=== PATIENT | male | born 1940 | race Caucasian/White ===

== ENCOUNTER 2021-10-01 15:10 | Inpatient (IN) | payer OTHER, BC ==
[2021-10-01] MEDS ORDERED: SODIUM CHLORIDE 2,449 ML IV ONE (15:26)
[2021-10-01] MEDS ORDERED: PIPERACILLIN/TAZOB 4.5 GM 4.5 GM in DEXTROSE 5%-WATER 100 ML IVPB ONE (15:31)
[2021-10-01] MEDS ORDERED: VANCOMYCIN 1 GM in D5W (PRE-DOCKED) 1,000 MG/250 ML IVPB ONE (15:31)
[2021-10-01 15:58] LABS: VENOUS BASE EXCESS -5.1 mmol/L (-2-2); VENOUS O2 SATURATION 40.3 % (70-80); VENOUS PCO2 36.2 mmHg (38-52); VENOUS PH 7.357 (7.310-7.410)
[2021-10-01] MEDS ORDERED: PIPERACILLIN/TAZOB 4.5 GM 4.5 GM/100 ML BAG IVPB ONE (16:00)
[2021-10-01 16:03] LABS: BASO % 0.1 % (0-2.0); LYMPH % 3.7 % (8-40); MCH 30.7 pg (25.7-33.7); MCHC 33.4 g/dl (32.0-35.9); MEAN CELL VOLUME 91.8 fl (80-96); MEAN PLT VOLUME 9.7 fl (7.5-11.1); MONO % 4.8 % (3.8-10.2); NEUT % 91.4 % (42.8-82.8); PLATELET COUNT 133 10^3/uL (134-434); RBC 3.92 M/mm3 (4.00-5.60); RDW 15.2 % (11.9-15.9); WHITE BLOOD COUNT 23.2 K/mm3 (4.0-10.0)
[2021-10-01 16:17] LABS: INR 1.22 (0.83-1.09); PROTHROMBIN TIME (PATIENT) 14.1 SEC (9.7-13.0)
[2021-10-01 16:19] LABS: ACTIVATED PTT 36.7 SECONDS (25.2-36.5); CALCIUM 8.1 mg/dL (8.5-10.1)
[2021-10-01 16:20] LABS: ALBUMIN 2.8 g/dl (3.4-5.0); BLOOD UREA NITROGEN 69.8 mg/dL (7-18)
[2021-10-01 16:24] LABS: CREATININE 4.1 mg/dL (0.55-1.3)
[2021-10-01 16:25] LABS: BILIRUBIN,TOTAL 0.8 mg/dL (0.2-1); TOT PROT 5.6 g/dl (6.4-8.2)
[2021-10-01 16:29] LABS: EPI CELLS 18 /uL (0-25.1); HYALINE CASTS 2 /uL (0-3.1); PH,URINE 7.5 (5.0-8.0); URINE APPEARANCE TURBID; URINE BACTERIA 735 /uL (0-1359); URINE BILIRUBIN NEGATIVE (NEGATIVE); URINE COLOR ORANGE; URINE GLUCOSE (UA) NEGATIVE (NEGATIVE); URINE KETONE NEGATIVE (NEGATIVE); URINE LEUK ESTERASE 3+ (NEGATIVE); URINE NITRITE NEGATIVE (NEGATIVE); URINE PROTEIN 2+ (NEGATIVE); URINE UROBILINOGEN 0.2 mg/dL (0.2-1.0); URINE WBC 1212 /uL (0-25.8)
[2021-10-01 16:36] LABS: MAGNESIUM 2.3 mg/dL (1.8-2.4)
[2021-10-01] MEDS ORDERED: ACETAMINOPHEN 1000 MG/100 ML BAG IVPB ONE (16:37)
[2021-10-01 16:40] LABS: PHOSPHOROUS 2.8 mg/dL (2.5-4.9)
[2021-10-01 16:42] LABS: LACTIC ACID 2.7 mmol/L (0.4-2.0)
[2021-10-01 16:59] LABS: ANISOCYTOSIS 1+; MACROCYTOSIS 0; TOXIC GRANULATION 1+
[2021-10-01] MEDS ORDERED: ACETAMINOPHEN INJECTION 100 ML IVPB ONE ×2 (17:07→21:28)
[2021-10-01] MEDS ORDERED: LORazepam 2 MG/ML SDV VIAL IVPUSH ONE ×2 (17:57→22:19)
[2021-10-01] MEDS ORDERED: SODIUM CHLORIDE 0.9% 500 ML INFUS.BAG IV ONE (18:18)
[2021-10-01 18:28] LABS: URINE RBC 84.9 /uL (0-23.9)
[2021-10-01] MEDS ORDERED: NOREPINEPHRINE BITARTRATE 4 MG/4 ML ML IV ONE (18:43)
[2021-10-01] MEDS: NOREPINEPHRINE D5W PREMIX 16,000 MCG/500 ML BAG IVPB SCH (19:17)
[2021-10-01] MEDS: CHLORHEXIDINE GLUCONATE 4% CLEANSER FOR DECOLONIZATION TP SCH (22:53)
[2021-10-01] MEDS: MUPIROCIN 2% TOPICAL OINTMENT FOR DECOLONIZATION NS SCH (22:53)
[2021-10-02] MEDS ORDERED: PIPERACILLIN/TAZOBACTAM 2.25 GM VIAL IVPB ONE ×3 (00:35→16:51)
[2021-10-02] MEDS ORDERED: DEXTROSE 5%-WATER - 50 ML IVPB ONE ×3 (00:35→16:51)
[2021-10-02] MEDS ORDERED: NOREPINEPHRINE BITARTRATE 4 MG/4 ML ML IV ONE (00:38)
[2021-10-02] MEDS: PIPERACILLIN/TAZOB 2.25 GM 2.25 GM in DEXTROSE 5%-WATER - 50 ML IVPB SCH ×3 (00:47→16:59)
[2021-10-02 07:29] LABS: CHLORIDE 117 mmol/L (98-107); SODIUM 148 mmol/L (136-145)
[2021-10-02 07:35] LABS: ALBUMIN 2.3 g/dl (3.4-5.0); ANION GAP 11 MMOL/L (8-16); BLOOD UREA NITROGEN 70.4 mg/dL (7-18); CO2 21 mmol/L (21-32); GLUCOSE,RANDOM 66 mg/dL (74-106); MAGNESIUM 2.1 mg/dL (1.8-2.4)
[2021-10-02 07:38] LABS: CREATININE 3.4 mg/dL (0.55-1.3); PHOSPHOROUS 4.3 mg/dL (2.5-4.9); SGOT/AST 125 U/L (15-37); SGPT/ALT 94 U/L (13-61)
[2021-10-02 07:39] LABS: TOT PROT 4.7 g/dl (6.4-8.2)
[2021-10-02 07:40] LABS: ALK PHOS 66 U/L (45-117)
[2021-10-02 07:47] LABS: HEMOGLOBIN 10.8 GM/dL (11.7-16.9); MCHC 33.6 g/dl (32.0-35.9); MEAN CELL VOLUME 92.2 fl (80-96); MEAN PLT VOLUME 9.7 fl (7.5-11.1); PLATELET COUNT 115 10^3/uL (134-434); RBC 3.47 M/mm3 (4.00-5.60); RDW 15.1 % (11.9-15.9); WHITE BLOOD COUNT 16.6 K/mm3 (4.0-10.0)
[2021-10-02 08:12] LABS: CALCIUM 6.7 mg/dL (8.5-10.1)
[2021-10-02] MEDS: DUTASTERIDE 0.5 MG CAP (FP) PO SCH (09:56)
[2021-10-02] MEDS: SERTRALINE HCL 25 MG TABLET (FP) PO SCH (09:56)
[2021-10-02] MEDS: ENOXAPARIN NA (PORCINE) 30 MG/0.3 ML DISP.SYRIN SQ SCH (09:57)
[2021-10-02] MEDS: buPROPion HCL 75 MG TABLET PO SCH (09:57)
[2021-10-02] MEDS: BACLOFEN 10 MG TABLET (FP) PO SCH (09:57)
[2021-10-02 10:02] LABS: ANISOCYTOSIS 1+; MACROCYTOSIS 1+; OVALOCYTE 1+
[2021-10-02] MEDS: MUPIROCIN 2% TOPICAL OINTMENT FOR DECOLONIZATION NS SCH ×2 (10:06→21:07)
[2021-10-02] MEDS ORDERED: LACTATED RINGERS SOLUTION 1,000 ML/1,000 ML INFUS.BAG IV SCH (11:30)
[2021-10-02 13:07] LABS: SARS-CoV-2 NAA Not Detected (Not Detected)
[2021-10-02] MEDS ORDERED: PNEUMOC 13-VAL CONJ-DIP CRM/PF 0.5 ML DISP.SYRIN IM ONE (15:00)
[2021-10-02] MEDS ORDERED: VANCOMYCIN/WATER 1,250 MG/250 ML BAG IVPB SCH ×2 (15:00→17:00)
[2021-10-02] MEDS: NOREPINEPHRINE D5W PREMIX 16,000 MCG/500 ML BAG IVPB SCH ×2 (17:16→18:30)
[2021-10-02] MEDS: CHLORHEXIDINE GLUCONATE 4% CLEANSER FOR DECOLONIZATION TP SCH (21:07)
[2021-10-03] MEDS ORDERED: DEXTROSE 5%-WATER - 50 ML IVPB ONE ×3 (01:10→17:56)
[2021-10-03] MEDS: PIPERACILLIN/TAZOB 2.25 GM 2.25 GM in DEXTROSE 5%-WATER - 50 ML IVPB SCH ×3 (01:10→17:58)
[2021-10-03] MEDS ORDERED: PIPERACILLIN/TAZOBACTAM 2.25 GM VIAL IVPB ONE ×3 (01:10→17:56)
[2021-10-03 08:04] LABS: CHLORIDE 121 mmol/L (98-107); HEMATOCRIT 31.2 % (35.4-49); HEMOGLOBIN 10.2 GM/dL (11.7-16.9); MCH 30.4 pg (25.7-33.7); MCHC 32.8 g/dl (32.0-35.9); MEAN CELL VOLUME 92.6 fl (80-96); MEAN PLT VOLUME 10.2 fl (7.5-11.1); PLATELET COUNT 95 10^3/uL (134-434); RBC 3.37 M/mm3 (4.00-5.60); RDW 15.5 % (11.9-15.9); SODIUM 150 mmol/L (136-145); WHITE BLOOD COUNT 18.2 K/mm3 (4.0-10.0)
[2021-10-03 08:08] LABS: ANION GAP 7 MMOL/L (8-16); BLOOD UREA NITROGEN 70.8 mg/dL (7-18); CO2 22 mmol/L (21-32); GLUCOSE,RANDOM 86 mg/dL (74-106); MAGNESIUM 2.3 mg/dL (1.8-2.4)
[2021-10-03 08:12] LABS: CREATININE 2.8 mg/dL (0.55-1.3); PHOSPHOROUS 3.7 mg/dL (2.5-4.9)
[2021-10-03 08:15] LABS: CALCIUM 6.8 mg/dL (8.5-10.1)
[2021-10-03] MEDS: MUPIROCIN 2% TOPICAL OINTMENT FOR DECOLONIZATION NS SCH ×2 (10:13→22:20)
[2021-10-03] MEDS: DUTASTERIDE 0.5 MG CAP (FP) PO SCH (10:26)
[2021-10-03] MEDS: BACLOFEN 10 MG TABLET (FP) PO SCH (10:27)
[2021-10-03] MEDS: ENOXAPARIN NA (PORCINE) 30 MG/0.3 ML DISP.SYRIN SQ SCH (10:27)
[2021-10-03] MEDS: buPROPion HCL 75 MG TABLET PO SCH (10:27)
[2021-10-03] MEDS: SERTRALINE HCL 25 MG TABLET (FP) PO SCH (10:29)
[2021-10-03] MEDS: SODIUM CHLORIDE 0.45% 1,000 ML IV SCH (13:31)
[2021-10-03] MEDS: NOREPINEPHRINE D5W PREMIX 16,000 MCG/500 ML BAG IVPB SCH (19:50)
[2021-10-03] MEDS: CHLORHEXIDINE GLUCONATE 4% CLEANSER FOR DECOLONIZATION TP SCH (22:20)
[2021-10-04] MEDS ORDERED: PIPERACILLIN/TAZOBACTAM 2.25 GM VIAL IVPB ONE ×3 (01:18→18:52)
[2021-10-04] MEDS ORDERED: DEXTROSE 5%-WATER - 50 ML IVPB ONE ×3 (01:18→18:52)
[2021-10-04] MEDS: PIPERACILLIN/TAZOB 2.25 GM 2.25 GM in DEXTROSE 5%-WATER - 50 ML IVPB SCH ×3 (01:21→18:50)
[2021-10-04] MEDS: SODIUM CHLORIDE 0.45% 1,000 ML IV SCH (05:45)
[2021-10-04] MEDS: ENOXAPARIN NA (PORCINE) 30 MG/0.3 ML DISP.SYRIN SQ SCH (09:56)
[2021-10-04] MEDS: BACLOFEN 10 MG TABLET (FP) PO SCH (09:56)
[2021-10-04] MEDS: SERTRALINE HCL 25 MG TABLET (FP) PO SCH (09:56)
[2021-10-04] MEDS: DUTASTERIDE 0.5 MG CAP (FP) PO SCH (09:56)
[2021-10-04] MEDS: MUPIROCIN 2% TOPICAL OINTMENT FOR DECOLONIZATION NS SCH ×2 (09:57→22:26)
[2021-10-04] MEDS: buPROPion HCL 75 MG TABLET PO SCH (09:57)
[2021-10-04] MEDS ORDERED: DEXTROSE 5%-WATER - 1,000 ML IV SCH (10:30)
[2021-10-04] MEDS ORDERED: ACETAMINOPHEN 1000 MG/100 ML BAG IVPB PRN (12:41)
[2021-10-04] MEDS: AMINO ACIDS 4.25%/D5W 1,000 ML IV SCH (18:50)
[2021-10-04] MEDS: CHLORHEXIDINE GLUCONATE 4% CLEANSER FOR DECOLONIZATION TP SCH (22:26)
[2021-10-05] MEDS ORDERED: PIPERACILLIN/TAZOBACTAM 2.25 GM VIAL IVPB ONE ×3 (02:00→17:08)
[2021-10-05] MEDS ORDERED: DEXTROSE 5%-WATER - 50 ML IVPB ONE ×3 (02:00→17:09)
[2021-10-05] MEDS: PIPERACILLIN/TAZOB 2.25 GM 2.25 GM in DEXTROSE 5%-WATER - 50 ML IVPB SCH ×3 (02:08→17:37)
[2021-10-05] MEDS: AMINO ACIDS 4.25%/D5W 1,000 ML IV SCH ×2 (05:08→17:37)
[2021-10-05 07:25] LABS: HEMATOCRIT 38.1 % (35.4-49); HEMOGLOBIN 12.3 GM/dL (11.7-16.9); MCH 30.1 pg (25.7-33.7); MCHC 32.2 g/dl (32.0-35.9); MEAN CELL VOLUME 93.3 fl (80-96); MEAN PLT VOLUME 9.9 fl (7.5-11.1); PLATELET COUNT 73 10^3/uL (134-434); RBC 4.08 M/mm3 (4.00-5.60); RDW 15.6 % (11.9-15.9); WHITE BLOOD COUNT 8.2 K/mm3 (4.0-10.0)
[2021-10-05 07:45] LABS: CALCIUM 7.8 mg/dL (8.5-10.1)
[2021-10-05 07:46] LABS: ALBUMIN 2.2 g/dl (3.4-5.0); BLOOD UREA NITROGEN 56.9 mg/dL (7-18)
[2021-10-05 07:49] LABS: CREATININE 1.8 mg/dL (0.55-1.3)
[2021-10-05 07:51] LABS: BILIRUBIN,TOTAL 0.9 mg/dL (0.2-1)
[2021-10-05] MEDS: DUTASTERIDE 0.5 MG CAP (FP) PO SCH (09:48)
[2021-10-05] MEDS: MUPIROCIN 2% TOPICAL OINTMENT FOR DECOLONIZATION NS SCH ×2 (09:48→22:12)
[2021-10-05] MEDS: BACLOFEN 10 MG TABLET (FP) PO SCH (09:49)
[2021-10-05] MEDS: buPROPion HCL 75 MG TABLET PO SCH (09:49)
[2021-10-05] MEDS: ENOXAPARIN NA (PORCINE) 30 MG/0.3 ML DISP.SYRIN SQ SCH (09:49)
[2021-10-05] MEDS: SERTRALINE HCL 25 MG TABLET (FP) PO SCH (09:50)
[2021-10-05 10:13] LABS: ANISOCYTOSIS 0; MACROCYTOSIS 0; PLATELET ESTIMATE DECREASED
[2021-10-05 13:03] VITALS: BMI 20.9
[2021-10-05] MEDS: hydrALAZINE HCL 20 MG/ML VIAL IVPUSH PRN (19:12)
[2021-10-05] MEDS: hydrALAZINE HCL 10 MG TABLET PO SCH (22:12)
[2021-10-05] MEDS: CHLORHEXIDINE GLUCONATE 4% CLEANSER FOR DECOLONIZATION TP SCH (22:12)
[2021-10-05] MEDS ORDERED: LORazepam 2 MG/ML SDV VIAL IVPUSH ONE (22:19)
[2021-10-06] MEDS ORDERED: DEXTROSE 5%-WATER - 50 ML IVPB ONE ×3 (01:10→17:15)
[2021-10-06] MEDS ORDERED: PIPERACILLIN/TAZOBACTAM 2.25 GM VIAL IVPB ONE ×3 (01:10→17:15)
[2021-10-06] MEDS: PIPERACILLIN/TAZOB 2.25 GM 2.25 GM in DEXTROSE 5%-WATER - 50 ML IVPB SCH ×3 (01:21→17:45)
[2021-10-06] MEDS: hydrALAZINE HCL 20 MG/ML VIAL IVPUSH PRN (03:23)
[2021-10-06] MEDS: AMINO ACIDS 4.25%/D5W 1,000 ML IV SCH ×2 (05:52→16:56)
[2021-10-06 07:31] LABS: HEMATOCRIT 34.5 % (35.4-49); HEMOGLOBIN 11.7 GM/dL (11.7-16.9); MCH 31.4 pg (25.7-33.7); MCHC 33.8 g/dl (32.0-35.9); MEAN CELL VOLUME 92.9 fl (80-96); MEAN PLT VOLUME 9.8 fl (7.5-11.1); PLATELET COUNT 97 10^3/uL (134-434); RBC 3.71 M/mm3 (4.00-5.60); RDW 15.4 % (11.9-15.9)
[2021-10-06 07:56] LABS: CALCIUM 7.6 mg/dL (8.5-10.1)
[2021-10-06 07:57] LABS: BLOOD UREA NITROGEN 49.4 mg/dL (7-18); MAGNESIUM 2.3 mg/dL (1.8-2.4)
[2021-10-06 08:00] LABS: CREATININE 1.4 mg/dL (0.55-1.3); PHOSPHOROUS 1.8 mg/dL (2.5-4.9)
[2021-10-06 09:50] LABS: ANISOCYTOSIS 0; HELMET CELLS 0; HOWELL-JOLLY BODIES 0; MACROCYTOSIS 0; OVALOCYTE 0; ROULEAU 0; SICKELED CELLS 0; TARGET CELLS 0; TEAR DROP CELLS 0; TOXIC GRANULATION 0
[2021-10-06] MEDS: ENOXAPARIN NA (PORCINE) 30 MG/0.3 ML DISP.SYRIN SQ SCH (10:50)
[2021-10-06] MEDS: hydrALAZINE HCL 10 MG TABLET PO SCH ×2 (10:51→22:00)
[2021-10-06] MEDS: buPROPion HCL 75 MG TABLET PO SCH (10:51)
[2021-10-06] MEDS: BACLOFEN 10 MG TABLET (FP) PO SCH (10:52)
[2021-10-06] MEDS: SERTRALINE HCL 25 MG TABLET (FP) PO SCH (10:52)
[2021-10-06] MEDS: DUTASTERIDE 0.5 MG CAP (FP) PO SCH (10:52)
[2021-10-06] MEDS: MUPIROCIN 2% TOPICAL OINTMENT FOR DECOLONIZATION NS SCH (10:53)
[2021-10-06] MEDS ORDERED: FUROSEMIDE 40 MG/4 ML INJECTABLE VIAL IVPUSH ONE (12:54)
[2021-10-06] MEDS ORDERED: hydrALAZINE HCL 20 MG/ML VIAL IVPUSH PRN (16:21)
[2021-10-06] MEDS ORDERED: CHLORHEXIDINE GLUCONATE 4% CLEANSER FOR DECOLONIZATION TP SCH (22:00)
[2021-10-06] MEDS ORDERED: MUPIROCIN 2% TOPICAL OINTMENT FOR DECOLONIZATION NS SCH (22:00)
[2021-10-07] MEDS ORDERED: DEXTROSE 5%-WATER - 50 ML IVPB ONE ×3 (00:42→16:43)
[2021-10-07] MEDS ORDERED: PIPERACILLIN/TAZOBACTAM 2.25 GM VIAL IVPB ONE ×3 (00:42→16:43)
[2021-10-07] MEDS: PIPERACILLIN/TAZOB 2.25 GM 2.25 GM in DEXTROSE 5%-WATER - 50 ML IVPB SCH ×3 (01:07→17:58)
[2021-10-07] MEDS: AMINO ACIDS 4.25%/D5W 1,000 ML IV SCH (07:27)
[2021-10-07] MEDS ORDERED: diazePAM CARPU-JECT 10 MG/2 ML DISP.SYRIN IVPUSH ONE (08:45)
[2021-10-07] MEDS ORDERED: FUROSEMIDE 40 MG/4 ML INJECTABLE VIAL IVPUSH ONE (08:45)
[2021-10-07] MEDS: ENOXAPARIN NA (PORCINE) 30 MG/0.3 ML DISP.SYRIN SQ SCH (09:24)
[2021-10-07] MEDS: SERTRALINE HCL 25 MG TABLET (FP) PO SCH (09:25)
[2021-10-07] MEDS: BACLOFEN 10 MG TABLET (FP) PO SCH (09:25)
[2021-10-07] MEDS: buPROPion HCL 75 MG TABLET PO SCH (09:25)
[2021-10-07] MEDS: DUTASTERIDE 0.5 MG CAP (FP) PO SCH (09:25)
[2021-10-07] MEDS: hydrALAZINE HCL 10 MG TABLET PO SCH ×2 (09:25→21:32)
[2021-10-07 10:40] LABS: HEMOGLOBIN 10.3 GM/dL (11.7-16.9); MCH 30.4 pg (25.7-33.7); MCHC 33.2 g/dl (32.0-35.9); MEAN CELL VOLUME 91.6 fl (80-96); MEAN PLT VOLUME 9.7 fl (7.5-11.1); PLATELET COUNT 142 10^3/uL (134-434); RBC 3.39 M/mm3 (4.00-5.60); RDW 14.6 % (11.9-15.9); WHITE BLOOD COUNT 9.9 K/mm3 (4.0-10.0)
[2021-10-07 11:08] LABS: CHLORIDE 119 mmol/L (98-107); SODIUM 150 mmol/L (136-145)
[2021-10-07 11:16] LABS: ALBUMIN 2.2 g/dl (3.4-5.0); BLOOD UREA NITROGEN 42.1 mg/dL (7-18); CO2 25 mmol/L (21-32); GLUCOSE,RANDOM 116 mg/dL (74-106)
[2021-10-07 11:19] LABS: CREATININE 1.3 mg/dL (0.55-1.3); SGOT/AST 27 U/L (15-37); SGPT/ALT 23 U/L (13-61)
[2021-10-07 11:21] LABS: TOT PROT 5.2 g/dl (6.4-8.2)
[2021-10-07 11:22] LABS: ALK PHOS 95 U/L (45-117)
[2021-10-07 11:27] LABS: ANION GAP 6 MMOL/L (8-16)
[2021-10-07 12:04] LABS: ANISOCYTOSIS 1+; MACROCYTOSIS 1+
[2021-10-07] MEDS: KCL 10 MEQ IVPB 10 MEQ/100 ML INFUS.BAG IVPB SCH ×4 (12:17→18:32)
[2021-10-07] MEDS: POTASSIUM CHLORIDE 20 MEQ in AMINO ACIDS 4.25%/D5W 1,000 ML IV SCH ×2 (19:41→21:34)
[2021-10-07] MEDS: METOPROLOL TARTRATE 5 MG/5 ML VIAL IVPB PRN (21:59)
[2021-10-08] MEDS ORDERED: PIPERACILLIN/TAZOBACTAM 2.25 GM VIAL IVPB ONE ×3 (01:21→16:17)
[2021-10-08] MEDS ORDERED: DEXTROSE 5%-WATER - 50 ML IVPB ONE ×3 (01:22→16:17)
[2021-10-08] MEDS: PIPERACILLIN/TAZOB 2.25 GM 2.25 GM in DEXTROSE 5%-WATER - 50 ML IVPB SCH ×2 (01:28→10:08)
[2021-10-08] MEDS: METOPROLOL TARTRATE 5 MG/5 ML VIAL IVPB PRN ×3 (02:30→10:31)
[2021-10-08] MEDS: POTASSIUM CHLORIDE 20 MEQ in AMINO ACIDS 4.25%/D5W 1,000 ML IV SCH ×3 (03:00→15:05)
[2021-10-08 09:14] LABS: HEMATOCRIT 30.5 % (35.4-49); HEMOGLOBIN 10.5 GM/dL (11.7-16.9); MCH 31.2 pg (25.7-33.7); MCHC 34.6 g/dl (32.0-35.9); MEAN CELL VOLUME 90.3 fl (80-96); MEAN PLT VOLUME 9.2 fl (7.5-11.1); PLATELET COUNT 190 10^3/uL (134-434); RBC 3.37 M/mm3 (4.00-5.60); RDW 14.6 % (11.9-15.9); WHITE BLOOD COUNT 9.2 K/mm3 (4.0-10.0)
[2021-10-08 09:47] LABS: CALCIUM 7.8 mg/dL (8.5-10.1)
[2021-10-08 09:48] LABS: ALBUMIN 2.2 g/dl (3.4-5.0); BLOOD UREA NITROGEN 41.8 mg/dL (7-18)
[2021-10-08 09:51] LABS: CREATININE 1.3 mg/dL (0.55-1.3); PHOSPHOROUS 1.9 mg/dL (2.5-4.9)
[2021-10-08 09:52] LABS: BILIRUBIN,TOTAL 2.7 mg/dL (0.2-1); TOT PROT 5.4 g/dl (6.4-8.2)
[2021-10-08] MEDS ORDERED: KCL 10 MEQ IVPB 10 MEQ/100 ML INFUS.BAG IVPB SCH (10:00)
[2021-10-08] MEDS: DUTASTERIDE 0.5 MG CAP (FP) PO SCH (10:09)
[2021-10-08] MEDS: BACLOFEN 10 MG TABLET (FP) PO SCH (10:09)
[2021-10-08] MEDS: hydrALAZINE HCL 10 MG TABLET PO SCH (10:09)
[2021-10-08] MEDS: buPROPion HCL 75 MG TABLET PO SCH (10:11)
[2021-10-08] MEDS: SERTRALINE HCL 25 MG TABLET (FP) PO SCH (10:11)
[2021-10-08] MEDS: ENOXAPARIN NA (PORCINE) 30 MG/0.3 ML DISP.SYRIN SQ SCH (10:30)
[2021-10-08] MEDS: HALOPERIDOL LACTATE 5 MG/ML IM PRN (13:15)
[2021-10-08] MEDS ORDERED: POTASSIUM CHLORIDE ORAL LIQUID 20 MEQ/15 ML PO ONE (16:37)
[2021-10-08] MEDS: PIPERACILLIN/TAZOB 3.375 GM 3.375 GM in DEXTROSE 5%-WATER - 50 ML IVPB SCH (17:24)
[2021-10-08] MEDS: hydrALAZINE HCL 10 MG TABLET NGT SCH (22:47)
[2021-10-09] MEDS ORDERED: DEXTROSE 5%-WATER - 50 ML IVPB ONE ×3 (00:45→15:19)
[2021-10-09] MEDS ORDERED: PIPERACILLIN/TAZOBACTAM 3.375 GM VIAL IVPB ONE ×3 (00:45→15:19)
[2021-10-09] MEDS: PIPERACILLIN/TAZOB 3.375 GM 3.375 GM in DEXTROSE 5%-WATER - 50 ML IVPB SCH ×3 (01:22→17:10)
[2021-10-09 09:08] LABS: HEMATOCRIT 31.3 % (35.4-49); HEMOGLOBIN 10.5 GM/dL (11.7-16.9); MCH 30.8 pg (25.7-33.7); MCHC 33.6 g/dl (32.0-35.9); MEAN CELL VOLUME 91.7 fl (80-96); MEAN PLT VOLUME 9.3 fl (7.5-11.1); PLATELET COUNT 262 10^3/uL (134-434); RBC 3.41 M/mm3 (4.00-5.60); RDW 14.6 % (11.9-15.9); WHITE BLOOD COUNT 7.7 K/mm3 (4.0-10.0)
[2021-10-09 09:34] LABS: BLOOD UREA NITROGEN 41.7 mg/dL (7-18)
[2021-10-09 09:35] LABS: CALCIUM 8.4 mg/dL (8.5-10.1); MAGNESIUM 2.2 mg/dL (1.8-2.4)
[2021-10-09 09:38] LABS: CREATININE 1.3 mg/dL (0.55-1.3)
[2021-10-09 09:40] LABS: PHOSPHOROUS 3.2 mg/dL (2.5-4.9)
[2021-10-09] MEDS: DUTASTERIDE 0.5 MG CAP (FP) PO SCH (09:58)
[2021-10-09] MEDS: SERTRALINE HCL 25 MG TABLET (FP) PO SCH (09:58)
[2021-10-09] MEDS: hydrALAZINE HCL 10 MG TABLET NGT SCH ×2 (09:58→21:49)
[2021-10-09] MEDS: buPROPion HCL 75 MG TABLET NGT SCH (09:59)
[2021-10-09] MEDS: ENOXAPARIN NA (PORCINE) 30 MG/0.3 ML DISP.SYRIN SQ SCH (09:59)
[2021-10-09] MEDS: COLLAGENASE CLOSTRIDIUM HIST. 30 GRAMS TUBE TP SCH (10:00)
[2021-10-09] MEDS: HALOPERIDOL LACTATE 5 MG/ML IM PRN (10:28)
[2021-10-09] MEDS: METOPROLOL TARTRATE 5 MG/5 ML VIAL IVPB PRN ×2 (10:28→14:42)
[2021-10-10] MEDS ORDERED: PIPERACILLIN/TAZOBACTAM 3.375 GM VIAL IVPB ONE ×3 (01:25→17:10)
[2021-10-10] MEDS ORDERED: DEXTROSE 5%-WATER - 50 ML IVPB ONE ×3 (01:25→17:10)
[2021-10-10] MEDS: PIPERACILLIN/TAZOB 3.375 GM 3.375 GM in DEXTROSE 5%-WATER - 50 ML IVPB SCH ×3 (01:25→17:12)
[2021-10-10 09:13] LABS: BASO % 0.5 % (0-2.0); EOS % 1.3 % (0-4.5); HEMATOCRIT 32.3 % (35.4-49); HEMOGLOBIN 10.8 GM/dL (11.7-16.9); LYMPH % 10.4 % (8-40); MCH 30.7 pg (25.7-33.7); MCHC 33.5 g/dl (32.0-35.9); MEAN CELL VOLUME 91.8 fl (80-96); MEAN PLT VOLUME 9.4 fl (7.5-11.1); NEUT % 75.8 % (42.8-82.8); PLATELET COUNT 318 10^3/uL (134-434); RBC 3.52 M/mm3 (4.00-5.60); RDW 14.9 % (11.9-15.9); WHITE BLOOD COUNT 8.3 K/mm3 (4.0-10.0)
[2021-10-10 09:31] LABS: BLOOD UREA NITROGEN 45.3 mg/dL (7-18); CALCIUM 8.4 mg/dL (8.5-10.1)
[2021-10-10 09:35] LABS: CREATININE 1.3 mg/dL (0.55-1.3)
[2021-10-10] MEDS: buPROPion HCL 75 MG TABLET NGT SCH (10:16)
[2021-10-10] MEDS: hydrALAZINE HCL 10 MG TABLET NGT SCH ×2 (10:16→21:33)
[2021-10-10] MEDS: DUTASTERIDE 0.5 MG CAP (FP) PO SCH (10:16)
[2021-10-10] MEDS: SERTRALINE HCL 25 MG TABLET (FP) PO SCH (10:17)
[2021-10-10] MEDS: ENOXAPARIN NA (PORCINE) 30 MG/0.3 ML DISP.SYRIN SQ SCH (10:17)
[2021-10-10] MEDS: METOPROLOL TARTRATE 5 MG/5 ML VIAL IVPB PRN ×2 (12:14→16:52)
[2021-10-10] MEDS: COLLAGENASE CLOSTRIDIUM HIST. 30 GRAMS TUBE TP SCH (15:24)
[2021-10-10] MEDS ORDERED: LORazepam 2 MG/ML SDV VIAL IVPUSH ONE (22:10)
[2021-10-11] MEDS ORDERED: PIPERACILLIN/TAZOBACTAM 3.375 GM VIAL IVPB ONE ×3 (00:45→17:02)
[2021-10-11] MEDS ORDERED: DEXTROSE 5%-WATER - 50 ML IVPB ONE ×3 (00:45→17:02)
[2021-10-11] MEDS: PIPERACILLIN/TAZOB 3.375 GM 3.375 GM in DEXTROSE 5%-WATER - 50 ML IVPB SCH ×3 (00:59→17:08)
[2021-10-11] MEDS: hydrALAZINE HCL 10 MG TABLET NGT SCH ×5 (01:23→21:32)
[2021-10-11] MEDS: METOPROLOL TARTRATE 5 MG/5 ML VIAL IVPB PRN ×2 (02:15→09:30)
[2021-10-11 09:33] LABS: BLOOD UREA NITROGEN 40.8 mg/dL (7-18); CALCIUM 8.2 mg/dL (8.5-10.1)
[2021-10-11 09:34] LABS: ALBUMIN 2.2 g/dl (3.4-5.0)
[2021-10-11] MEDS: ENOXAPARIN NA (PORCINE) 30 MG/0.3 ML DISP.SYRIN SQ SCH (09:34)
[2021-10-11] MEDS: DUTASTERIDE 0.5 MG CAP (FP) PO SCH (09:34)
[2021-10-11] MEDS: SERTRALINE HCL 25 MG TABLET (FP) PO SCH (09:34)
[2021-10-11 09:37] LABS: CREATININE 1.2 mg/dL (0.55-1.3)
[2021-10-11 09:38] LABS: BILIRUBIN,TOTAL 0.8 mg/dL (0.2-1); TOT PROT 5.7 g/dl (6.4-8.2)
[2021-10-11] MEDS: COLLAGENASE CLOSTRIDIUM HIST. 30 GRAMS TUBE TP SCH (10:27)
[2021-10-11] MEDS: buPROPion HCL 75 MG TABLET NGT SCH (10:27)
[2021-10-11] MEDS: LISINOPRIL 10 MG TABLET NGT SCH (10:27)
[2021-10-11] MEDS: amLODIPine BESYLATE 5 MG TABLET (FP) PO SCH (14:43)
[2021-10-12] MEDS ORDERED: PIPERACILLIN/TAZOBACTAM 3.375 GM VIAL IVPB ONE ×2 (00:44→10:52)
[2021-10-12] MEDS ORDERED: DEXTROSE 5%-WATER - 50 ML IVPB ONE ×2 (00:44→10:52)
[2021-10-12] MEDS: PIPERACILLIN/TAZOB 3.375 GM 3.375 GM in DEXTROSE 5%-WATER - 50 ML IVPB SCH ×2 (01:00→11:08)
[2021-10-12] MEDS: METOPROLOL TARTRATE 5 MG/5 ML VIAL IVPB PRN (02:15)
[2021-10-12] MEDS: hydrALAZINE HCL 10 MG TABLET NGT SCH (05:55)
[2021-10-12] MEDS: LISINOPRIL 10 MG TABLET NGT SCH (09:40)
[2021-10-12] MEDS: DUTASTERIDE 0.5 MG CAP (FP) PO SCH (09:40)
[2021-10-12] MEDS: COLLAGENASE CLOSTRIDIUM HIST. 30 GRAMS TUBE TP SCH (09:40)
[2021-10-12] MEDS: SERTRALINE HCL 25 MG TABLET (FP) PO SCH (09:40)
[2021-10-12] MEDS: METOPROLOL TARTRATE 25 MG TABLET (FP) NGT SCH ×2 (09:40→21:15)
[2021-10-12] MEDS: amLODIPine BESYLATE 5 MG TABLET (FP) PO SCH (09:40)
[2021-10-12] MEDS: ENOXAPARIN NA (PORCINE) 30 MG/0.3 ML DISP.SYRIN SQ SCH (09:40)
[2021-10-12 09:51] LABS: HEMATOCRIT 29.9 % (35.4-49); HEMOGLOBIN 9.8 GM/dL (11.7-16.9); MCH 30.3 pg (25.7-33.7); MCHC 32.9 g/dl (32.0-35.9); MEAN PLT VOLUME 9.8 fl (7.5-11.1); PLATELET COUNT 340 10^3/uL (134-434); RBC 3.24 M/mm3 (4.00-5.60); RDW 14.5 % (11.9-15.9); WHITE BLOOD COUNT 9.9 K/mm3 (4.0-10.0)
[2021-10-12] MEDS: HALOPERIDOL LACTATE 5 MG/ML IM PRN (10:01)
[2021-10-12 10:11] LABS: BLOOD UREA NITROGEN 42.1 mg/dL (7-18); CALCIUM 8.1 mg/dL (8.5-10.1); MAGNESIUM 2.7 mg/dL (1.8-2.4)
[2021-10-12 10:15] LABS: CREATININE 1.1 mg/dL (0.55-1.3)
[2021-10-12] MEDS: buPROPion HCL 75 MG TABLET NGT SCH (11:18)
[2021-10-13] MEDS: LISINOPRIL 10 MG TABLET NGT SCH (10:31)
[2021-10-13] MEDS: buPROPion HCL 75 MG TABLET NGT SCH (10:31)
[2021-10-13] MEDS: amLODIPine BESYLATE 5 MG TABLET (FP) PO SCH (10:31)
[2021-10-13] MEDS: SERTRALINE HCL 25 MG TABLET (FP) PO SCH (10:31)
[2021-10-13] MEDS: ENOXAPARIN NA (PORCINE) 30 MG/0.3 ML DISP.SYRIN SQ SCH (10:31)
[2021-10-13] MEDS: COLLAGENASE CLOSTRIDIUM HIST. 30 GRAMS TUBE TP SCH (10:33)
[2021-10-13] MEDS: ACETAMINOPHEN 650 MG/20.3 ML ORAL SOLUTION (CUPS) NGT PRN (10:34)
[2021-10-13] MEDS: DUTASTERIDE 0.5 MG CAP (FP) PO SCH (10:44)
[2021-10-13] MEDS: METOPROLOL TARTRATE 25 MG TABLET (FP) NGT SCH (12:21)
[2021-10-13] MEDS: ALBUTEROL SO4 2.5/IPRATROPIUM 0.5 INH SOL 3 ML VIAL.NEB. NEB SCH (20:00)
[2021-10-13] MEDS: HALOPERIDOL LACTATE 5 MG/ML IM PRN (23:52)
[2021-10-14] MEDS: ALBUTEROL SO4 2.5/IPRATROPIUM 0.5 INH SOL 3 ML VIAL.NEB. NEB SCH ×3 (07:36→20:20)
[2021-10-14 09:35] LABS: HEMATOCRIT 29.4 % (35.4-49); HEMOGLOBIN 9.9 GM/dL (11.7-16.9); MCH 30.6 pg (25.7-33.7); MCHC 33.7 g/dl (32.0-35.9); MEAN CELL VOLUME 90.7 fl (80-96); MEAN PLT VOLUME 9.9 fl (7.5-11.1); PLATELET COUNT 379 10^3/uL (134-434); RBC 3.24 M/mm3 (4.00-5.60); WHITE BLOOD COUNT 7.6 K/mm3 (4.0-10.0)
[2021-10-14 09:52] LABS: ALBUMIN 2.4 g/dl (3.4-5.0); CALCIUM 8.4 mg/dL (8.5-10.1)
[2021-10-14 09:57] LABS: BILIRUBIN,TOTAL 0.5 mg/dL (0.2-1); TOT PROT 5.6 g/dl (6.4-8.2)
[2021-10-14] MEDS: SERTRALINE HCL 25 MG TABLET (FP) PO SCH (10:47)
[2021-10-14] MEDS: LISINOPRIL 10 MG TABLET NGT SCH (10:47)
[2021-10-14] MEDS: buPROPion HCL 75 MG TABLET NGT SCH (10:48)
[2021-10-14] MEDS: DUTASTERIDE 0.5 MG CAP (FP) PO SCH (10:48)
[2021-10-14] MEDS: ENOXAPARIN NA (PORCINE) 30 MG/0.3 ML DISP.SYRIN SQ SCH (10:48)
[2021-10-14] MEDS: amLODIPine BESYLATE 5 MG TABLET (FP) PO SCH (10:48)
[2021-10-14] MEDS: COLLAGENASE CLOSTRIDIUM HIST. 30 GRAMS TUBE TP SCH (10:48)
[2021-10-14] MEDS: METOPROLOL TARTRATE 25 MG TABLET (FP) NGT SCH (23:20)
[2021-10-15] MEDS: ACETAMINOPHEN 650 MG/20.3 ML ORAL SOLUTION (CUPS) NGT PRN (04:44)
[2021-10-15] MEDS: ALBUTEROL SO4 2.5/IPRATROPIUM 0.5 INH SOL 3 ML VIAL.NEB. NEB SCH ×3 (07:35→20:08)
[2021-10-15] MEDS: COLLAGENASE CLOSTRIDIUM HIST. 30 GRAMS TUBE TP SCH (10:35)
[2021-10-15] MEDS: SERTRALINE HCL 25 MG TABLET (FP) PO SCH (12:34)
[2021-10-15] MEDS: amLODIPine BESYLATE 5 MG TABLET (FP) PO SCH (12:35)
[2021-10-15] MEDS: DUTASTERIDE 0.5 MG CAP (FP) PO SCH (12:35)
[2021-10-15] MEDS: LISINOPRIL 10 MG TABLET NGT SCH (12:35)
[2021-10-15] MEDS: ENOXAPARIN NA (PORCINE) 30 MG/0.3 ML DISP.SYRIN SQ SCH (12:35)
[2021-10-15] MEDS: METOPROLOL TARTRATE 25 MG TABLET (FP) NGT SCH (12:35)
[2021-10-15] MEDS: buPROPion HCL 75 MG TABLET NGT SCH (12:36)
[2021-10-16] MEDS: METOPROLOL TARTRATE 25 MG TABLET (FP) NGT SCH ×3 (00:46→23:03)
[2021-10-16] MEDS: ALBUTEROL SO4 2.5/IPRATROPIUM 0.5 INH SOL 3 ML VIAL.NEB. NEB SCH ×3 (07:46→19:33)
[2021-10-16] MEDS: ENOXAPARIN NA (PORCINE) 30 MG/0.3 ML DISP.SYRIN SQ SCH (10:55)
[2021-10-16] MEDS: DUTASTERIDE 0.5 MG CAP (FP) PO SCH (10:55)
[2021-10-16] MEDS: SERTRALINE HCL 25 MG TABLET (FP) PO SCH (10:55)
[2021-10-16] MEDS: COLLAGENASE CLOSTRIDIUM HIST. 30 GRAMS TUBE TP SCH (10:55)
[2021-10-16] MEDS: LISINOPRIL 10 MG TABLET NGT SCH (10:55)
[2021-10-16] MEDS: amLODIPine BESYLATE 5 MG TABLET (FP) PO SCH (10:55)
[2021-10-16] MEDS: buPROPion HCL 75 MG TABLET NGT SCH (10:57)
[2021-10-16] MEDS: ZINC SULFATE 220 MG CAPSULE (FP) PO SCH (17:20)
[2021-10-16] MEDS: MULTIVIT-MINERALS ORAL LIQUID PO SCH (17:20)
[2021-10-16] MEDS: ASCORBIC ACID 250 MG TABLET (FP) PO SCH (17:21)
[2021-10-17] MEDS: ALBUTEROL SO4 2.5/IPRATROPIUM 0.5 INH SOL 3 ML VIAL.NEB. NEB SCH ×3 (07:29→20:10)
[2021-10-17 09:18] LABS: HEMATOCRIT 29.7 % (35.4-49); HEMOGLOBIN 10.1 GM/dL (11.7-16.9); MCH 30.8 pg (25.7-33.7); MCHC 34.1 g/dl (32.0-35.9); MEAN CELL VOLUME 90.3 fl (80-96); MEAN PLT VOLUME 9.4 fl (7.5-11.1); PLATELET COUNT 454 10^3/uL (134-434); RBC 3.29 M/mm3 (4.00-5.60); RDW 14.2 % (11.9-15.9); WHITE BLOOD COUNT 7.6 K/mm3 (4.0-10.0)
[2021-10-17 09:34] LABS: CALCIUM 8.6 mg/dL (8.5-10.1)
[2021-10-17 09:35] LABS: BLOOD UREA NITROGEN 37.1 mg/dL (7-18); MAGNESIUM 2.5 mg/dL (1.8-2.4)
[2021-10-17] MEDS: ZINC SULFATE 220 MG CAPSULE (FP) PO SCH (10:56)
[2021-10-17] MEDS: buPROPion HCL 75 MG TABLET NGT SCH (10:57)
[2021-10-17] MEDS: SERTRALINE HCL 25 MG TABLET (FP) PO SCH (10:57)
[2021-10-17] MEDS: ASCORBIC ACID 250 MG TABLET (FP) PO SCH (10:57)
[2021-10-17] MEDS: DUTASTERIDE 0.5 MG CAP (FP) PO SCH (10:57)
[2021-10-17] MEDS: amLODIPine BESYLATE 5 MG TABLET (FP) PO SCH (10:57)
[2021-10-17] MEDS: METOPROLOL TARTRATE 25 MG TABLET (FP) NGT SCH ×2 (10:58→22:33)
[2021-10-17] MEDS: ENOXAPARIN NA (PORCINE) 30 MG/0.3 ML DISP.SYRIN SQ SCH (10:58)
[2021-10-17] MEDS: LISINOPRIL 10 MG TABLET NGT SCH (10:58)
[2021-10-17] MEDS: COLLAGENASE CLOSTRIDIUM HIST. 30 GRAMS TUBE TP SCH (10:58)
[2021-10-17] MEDS: MULTIVIT-MINERALS ORAL LIQUID PO SCH (10:58)
[2021-10-18] MEDS: ALBUTEROL SO4 2.5/IPRATROPIUM 0.5 INH SOL 3 ML VIAL.NEB. NEB SCH ×2 (08:55→14:56)
[2021-10-18] MEDS: DUTASTERIDE 0.5 MG CAP (FP) PO SCH (09:44)
[2021-10-18] MEDS: buPROPion HCL 75 MG TABLET NGT SCH (09:44)
[2021-10-18] MEDS: ASCORBIC ACID 250 MG TABLET (FP) PO SCH (09:44)
[2021-10-18] MEDS: MULTIVIT-MINERALS ORAL LIQUID PO SCH (09:44)
[2021-10-18] MEDS: SERTRALINE HCL 25 MG TABLET (FP) PO SCH (09:45)
[2021-10-18] MEDS: ENOXAPARIN NA (PORCINE) 30 MG/0.3 ML DISP.SYRIN SQ SCH (09:45)
[2021-10-18] MEDS: ZINC SULFATE 220 MG CAPSULE (FP) PO SCH (09:45)
[2021-10-18] MEDS: COLLAGENASE CLOSTRIDIUM HIST. 30 GRAMS TUBE TP SCH (09:45)
[2021-10-18] MEDS: amLODIPine BESYLATE 5 MG TABLET (FP) PO SCH (10:28)
[2021-10-18] MEDS: LISINOPRIL 10 MG TABLET NGT SCH (10:28)
[2021-10-18] MEDS: METOPROLOL TARTRATE 25 MG TABLET (FP) NGT SCH ×2 (12:58→21:34)
[2021-10-18] MEDS: VANCOMYCIN 250 MG/5 ML ORAL SOLUTION NGT SCH (19:30)
[2021-10-19] MEDS: VANCOMYCIN 250 MG/5 ML ORAL SOLUTION NGT SCH ×4 (01:00→17:52)
[2021-10-19] MEDS: HALOPERIDOL LACTATE 5 MG/ML IM PRN (01:05)
[2021-10-19] MEDS: SERTRALINE HCL 25 MG TABLET (FP) PO SCH (10:18)
[2021-10-19] MEDS: LISINOPRIL 10 MG TABLET NGT SCH (10:18)
[2021-10-19] MEDS: ZINC SULFATE 220 MG CAPSULE (FP) PO SCH (10:18)
[2021-10-19] MEDS: ASCORBIC ACID 250 MG TABLET (FP) PO SCH (10:18)
[2021-10-19] MEDS: DUTASTERIDE 0.5 MG CAP (FP) PO SCH (10:18)
[2021-10-19] MEDS: MULTIVIT-MINERALS ORAL LIQUID PO SCH (10:18)
[2021-10-19] MEDS: buPROPion HCL 75 MG TABLET NGT SCH (10:18)
[2021-10-19] MEDS: METOPROLOL TARTRATE 25 MG TABLET (FP) NGT SCH ×2 (10:18→22:19)
[2021-10-19] MEDS: amLODIPine BESYLATE 5 MG TABLET (FP) PO SCH (10:18)
[2021-10-19] MEDS: ENOXAPARIN NA (PORCINE) 30 MG/0.3 ML DISP.SYRIN SQ SCH (10:18)
[2021-10-19] MEDS: COLLAGENASE CLOSTRIDIUM HIST. 30 GRAMS TUBE TP SCH (10:19)
[2021-10-20] MEDS: VANCOMYCIN 250 MG/5 ML ORAL SOLUTION NGT SCH ×4 (00:22→17:45)
[2021-10-20 08:50] LABS: ALBUMIN 2.6 g/dl (3.4-5.0); BLOOD UREA NITROGEN 30.3 mg/dL (7-18); CALCIUM 8.8 mg/dL (8.5-10.1)
[2021-10-20 08:53] LABS: CREATININE 1.1 mg/dL (0.55-1.3)
[2021-10-20 08:56] LABS: BILIRUBIN,TOTAL 0.6 mg/dL (0.2-1)
[2021-10-20] MEDS: ENOXAPARIN NA (PORCINE) 30 MG/0.3 ML DISP.SYRIN SQ SCH (10:24)
[2021-10-20] MEDS: MULTIVIT-MINERALS ORAL LIQUID PO SCH (10:24)
[2021-10-20] MEDS: LISINOPRIL 10 MG TABLET NGT SCH (10:25)
[2021-10-20] MEDS: buPROPion HCL 75 MG TABLET NGT SCH (10:29)
[2021-10-20] MEDS: METOPROLOL TARTRATE 25 MG TABLET (FP) NGT SCH ×2 (10:29→21:11)
[2021-10-20] MEDS: amLODIPine BESYLATE 5 MG TABLET (FP) PO SCH (10:29)
[2021-10-20] MEDS: ZINC SULFATE 220 MG CAPSULE (FP) PO SCH (10:29)
[2021-10-20] MEDS: DUTASTERIDE 0.5 MG CAP (FP) PO SCH (10:29)
[2021-10-20] MEDS: ASCORBIC ACID 250 MG TABLET (FP) PO SCH (10:29)
[2021-10-20] MEDS: SERTRALINE HCL 25 MG TABLET (FP) PO SCH (10:29)
[2021-10-20] MEDS: COLLAGENASE CLOSTRIDIUM HIST. 30 GRAMS TUBE TP SCH (10:29)
[2021-10-21] MEDS: VANCOMYCIN 250 MG/5 ML ORAL SOLUTION NGT SCH ×4 (00:11→17:08)
[2021-10-21] MEDS: DUTASTERIDE 0.5 MG CAP (FP) PO SCH (09:47)
[2021-10-21] MEDS: ZINC SULFATE 220 MG CAPSULE (FP) PO SCH (09:47)
[2021-10-21] MEDS: SERTRALINE HCL 25 MG TABLET (FP) PO SCH (09:47)
[2021-10-21] MEDS: ASCORBIC ACID 250 MG TABLET (FP) PO SCH (09:47)
[2021-10-21] MEDS: METOPROLOL TARTRATE 25 MG TABLET (FP) NGT SCH ×2 (09:47→21:31)
[2021-10-21] MEDS: amLODIPine BESYLATE 5 MG TABLET (FP) PO SCH (09:48)
[2021-10-21] MEDS: COLLAGENASE CLOSTRIDIUM HIST. 30 GRAMS TUBE TP SCH (09:48)
[2021-10-21] MEDS: LISINOPRIL 10 MG TABLET NGT SCH (09:48)
[2021-10-21] MEDS: buPROPion HCL 75 MG TABLET NGT SCH (09:48)
[2021-10-21] MEDS: MULTIVIT-MINERALS ORAL LIQUID PO SCH (09:48)
[2021-10-21] MEDS: HALOPERIDOL LACTATE 5 MG/ML IM PRN (17:42)
[2021-10-22] MEDS: VANCOMYCIN 250 MG/5 ML ORAL SOLUTION NGT SCH ×4 (00:26→17:25)
[2021-10-22] MEDS: SERTRALINE HCL 25 MG TABLET (FP) PO SCH (10:32)
[2021-10-22] MEDS: METOPROLOL TARTRATE 25 MG TABLET (FP) NGT SCH (10:32)
[2021-10-22] MEDS: DUTASTERIDE 0.5 MG CAP (FP) PO SCH (10:32)
[2021-10-22] MEDS: buPROPion HCL 75 MG TABLET NGT SCH (10:32)
[2021-10-22] MEDS: ZINC SULFATE 220 MG CAPSULE (FP) PO SCH (10:32)
[2021-10-22] MEDS: MULTIVIT-MINERALS ORAL LIQUID PO SCH (10:32)
[2021-10-22] MEDS: LISINOPRIL 10 MG TABLET NGT SCH (10:32)
[2021-10-22] MEDS: ASCORBIC ACID 250 MG TABLET (FP) PO SCH (10:32)
[2021-10-22] MEDS: COLLAGENASE CLOSTRIDIUM HIST. 30 GRAMS TUBE TP SCH (10:33)
[2021-10-22] MEDS: amLODIPine BESYLATE 5 MG TABLET (FP) PO SCH (10:33)
[2021-10-22 14:11] VITALS: BP 151/81; PULSE 75; TEMP 98.4
== END 2021-10-22 21:36 | disposition expired | DRG 871 ==
LOC: JER 15:10 → JERBED 15:26 → JICU 21:20 → J6S 10-06 15:45
PROVIDERS: ADMIT Family Medicine; ATTEND Family Medicine
PROC: 05HM33Z Insertion of Infusion Device into Right Internal Jugular Vein, Percutaneous Approach (ICD-10-PCS; principal; 2021-10-01)
DX: A41.9 Sepsis, unspecified organism (principal); R65.21 Severe sepsis with septic shock; J96.01 Acute respiratory failure with hypoxia; G92.9 Unspecified toxic encephalopathy; J69.0 Pneumonitis due to inhalation of food and vomit; I24.8 Other forms of acute ischemic heart disease; N17.9 Acute kidney failure, unspecified; N39.0 Urinary tract infection, site not specified; M62.82 Rhabdomyolysis; E87.0 Hyperosmolality and hypernatremia; E46 Unspecified protein-calorie malnutrition; A04.72 Enterocolitis due to Clostridium difficile, not specified as recurrent; G35 Multiple sclerosis; F03.90 Unspecified dementia, unspecified severity, without behavioral disturbance, psychotic disturbance, mood disturbance, and anxiety; I10 Essential (primary) hypertension; D69.6 Thrombocytopenia, unspecified; I12.9 Hypertensive chronic kidney disease with stage 1 through stage 4 chronic kidney disease, or unspecified chronic kidney disease; N18.9 Chronic kidney disease, unspecified; E87.6 Hypokalemia; Z68.21 Body mass index [BMI] 21.0-21.9, adult; N40.0 Benign prostatic hyperplasia without lower urinary tract symptoms; E83.51 Hypocalcemia; I95.9 Hypotension, unspecified
CPT/HCPCS: 36415; 70450-TC; 71045-TC-FY; 74018-TC-FY; 74230-TC-FY; 76775-TC; 80048; 80053; 81003; 82550; 82553; 82803; 82962; 83605; 83735; 83880; 84100; 84484; 85025; 85027; 85610; 85730; 86140; 86850; 86900; 86901; 87040; 87045; 87046; 87086; 87177; 87186; 87205; 87209; 87324; 87449; 87493; 87899; 92611-GN; 94640; 97116-GP; 97161-GP; 99285-25; C9803-CS; G0480; J0475; U0003; U0005